=== PATIENT | female | born 1995 | race African-American/Black ===

== ENCOUNTER 2022-10-12 14:11 | Emergency (ER) | payer MEDICAID ==
[~2022-10-12] VITALS: Ht 172.7 cm; Wt 79.0 kg
[2022-10-12] MEDS ORDERED: DICL75TA5 MT (17:34)
[2022-10-12 18:00] VITALS: BP 123/72
== END 2022-10-12 18:01 | disposition home or self-care (01) ==
LOC: ER 15:16
DX: G56.01 Carpal tunnel syndrome, right upper limb (principal)
CPT/HCPCS: 99283